=== PATIENT | female | born 2005 | race Caucasian/White ===

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

== ENCOUNTER 2023-06-16 13:26 | Emergency (ER) | payer MEDICAID ==
[~2023-06-16] VITALS: Ht 154.9 cm; Wt 41.7 kg
[~2023-06-16 13:26] MED LIST: IBUP-1454 PO; MECL1TAB42 PO; METH-1181 PO; ONDA-144 PO
[2023-06-16 13:41] VITALS: BP 98/64; PULSE 89; RESP 19; TEMP 99.4; O2SAT 96
[2023-06-16] MEDS ORDERED: TETANUS-DIPTH-ACEL PERTUSSIS 0.5ML SYR Tdap IM ONE (17:15)
== END 2023-06-16 17:38 | disposition home or self-care (01) ==
LOC: ER 13:26
DX: S51.812A Laceration without foreign body of left forearm, initial encounter (principal); Z79.1 Long term (current) use of non-steroidal anti-inflammatories (NSAID); Z79.899 Other long term (current) drug therapy; W26.8XXA Contact with other sharp object(s), not elsewhere classified, initial encounter; Y93.89 Activity, other specified; Y92.89 Other specified places as the place of occurrence of the external cause; Y99.8 Other external cause status
CPT/HCPCS: 12001; 90471; 90715